=== PATIENT | female | born 1935 | race Caucasian/White ===

== ENCOUNTER 2017-02-09 15:30 | Emergency (ER) | payer OTHER ==
[~2017-02-09] VITALS: Ht 152.4 cm; Wt 46.3 kg
[2017-02-09 15:59] VITALS: BP 168/72
[2017-02-09] MEDS ORDERED: PRED20TA PO (16:01)
[2017-02-09] MEDS ORDERED: ORPH100T PO (16:01)
[2017-02-09] MEDS ORDERED: HYDR-971 PO (16:01)
--- NOTE | 2017-02-09 16:02 | PHYS DOC ---
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 She believes that she overexerted herself somewhat with lifting moving repetitive motions. She states that she's been taking ibuprofen at home which seems to alleviate the pain somewhat but doesn't totally monie the pain. Patient states that she has also some numbness and tingling to the right side of her neck in the same area. Patient denies any previous spinal column fractures or spinal cord injuries. She denies any history of neuromuscular diseases. She denies chest pain, palpitations, exertional dyspnea , orthopnea or PND. Review of Systems Review of Systems Constitutional: Denies fever or chills [] Eyes: Denies change in visual acuity, redness, or eye pain [] HENT: Denies nasal congestion or sore throat [] Respiratory: Denies cough or shortness of breath [] Cardiovascular: No additional information not addressed in HPI [] GI: Denies abdominal pain, nausea, vomiting, bloody stools or diarrhea [] : Denies dysuria or hematuria [] Musculoskeletal: Denies back pain or joint pain [] Integument: Denies rash or skin lesions [] Neurologic: Denies headache, focal weakness or sensory changes [] Endocrine: Denies polyuria or polydipsia [] Physical Exam Physical Exam Constitutional: Well developed, well nourished, no acute distress, non-toxic appearance. [] HENT: Normocephalic, atraumatic, bilateral external ears normal, oropharynx moist, no oral exudates, nose normal. [] Eyes: PERRLA, EOMI, conjunctiva normal, no discharge. [] Neck: His neck is normal in appearance. There is tenderness to palpation to the right paraspinous soft tissues of the superior trapezius up into the insertion at the occiput. No palpable defect, deformity or spasm. There is no midline tenderness. Patient demonstrates full range of motion without any instability or crepitus. Cardiovascular:Heart rate regular rhythm, no murmur [] Lungs & Thorax: Bilateral breath sounds clear to auscultation [] Abdomen: Bowel sounds normal, soft, no tenderness, no masses, no pulsatile masses. [] Skin: Warm, dry, no erythema, no rash. [] Back: No tenderness, no CVA tenderness. [] Extremities: No tenderness, no cyanosis, no clubbing, ROM intact, no edema. [] Neurologic: Alert and oriented X 3, normal motor function, normal sensory function, no focal deficits noted. Bilateral upper extremity strength is equal and symmetric. Psychologic: Affect normal, judgement normal, mood normal. [] EKG EKG [] Radiology/Procedures Radiology/Procedures [] Course & Med Decision Making Course & Med Decision Making Pertinent Labs and Imaging studies reviewed. (See chart for details) [] Dragon Disclaimer Dragon Disclaimer This electronic medical record was generated, in whole or in part, using a voice recognition dictation system. Departure Departure Impression: Primary Impression: Cervical strain, acute Disposition: HOME, SELF-CARE Condition: GOOD Patient Instructions: Soft Tissue Injury of the Neck, [id number] Additional Instructions: 1. Take the medication as prescribed. 2. Review the discharge instructions provided for self-care and reasons to return to the emergency department. 3. Contact your primary care doctor's office Sunday to schedule follow-up appointment. Scripts Prednisone (PREDNISONE) 20 Mg Tablet 2 TAB PO DAILY for 5 Days, #10 TAB Prov: LAURITA CORONEL 02/09/17 Orphenadrine Citrate (ORPHENADRINE CITRATE) 100 Mg Tablet.er 100 MG PO twice a day for 7 Days Prov: LAURITA CORONEL 02/09/17 Hydrocodone/Apap 5-325 (NORCO 5-325 TABLET) 1 Each Tablet 1 TAB PO PRN Q6HRS Y for PAIN for 15 Days, TAB 0 Refills Prov: LAURITA CORONEL 02/09/17 Problem Qualifiers Primary Impression: Cervical strain, acute Encounter type: initial encounter Qualified Codes: S16.1XXA - Strain of muscle, fascia and tendon at neck level, initial encounter LAURITA CORONEL February 09, 2017 16:02
== END 2017-02-09 16:35 | disposition home or self-care (01) ==
LOC: ER 15:30
DX: S16.1XXA Strain of muscle, fascia and tendon at neck level, initial encounter (principal); X50.3XXA Overexertion from repetitive movements, initial encounter; Y93.E2 Activity, laundry; Y99.8 Other external cause status; Y92.89 Other specified places as the place of occurrence of the external cause
CPT/HCPCS: 99283

== ENCOUNTER → 2019-01-02 | Outpatient (CLI) | payer OTHER ==
[2017-10-28 11:05] VITALS: BP 100/64
[~2019-01-02] MED LIST: HYDR-3164 PO; LORA10CA PO; ORPH100T PO; PRED20TA PO
--- NOTE | 2019-01-02 14:31 | KCIC ---
EXAM: Dual energy x-ray absorptiometry (DEXA). HISTORY: Postmenopausal female presents for osteoporosis screening. COMPARISON: None. TECHNIQUE: Dual energy x-ray absorptiometry of the lumbar spine and left hip was performed. Calculation of bone mineral density based on standard deviations above or below the expected young adult normal value (T-score) was completed. FINDINGS: The average bone mineral density in the 1st through 4th lumbar vertebrae is 0.989 g/cmxcm, corresponding with a T-score of -0.5. The average total bone mineral density in the left hip is 0.724 g/cmxcm, corresponding with a T-score of -1.8. IMPRESSION: 1. Osteopenia measured at the left hip. 2. Normal bone mineral density measured at the lumbar spine. Note: Definitions established by the World Health Organization: 1. Normal: T-score is -1.0 or above. 2. Osteopenia: T-score is between -1.0 and -2.5 . 3. Osteoporosis: T-score is -2.5 or below. Electronically signed by: Alice Roberson MD (01/02/2019 2:28 PM) [place] [id number]
--- NOTE | 2019-01-03 12:50 | KCIC ---
Bilateral digital screening mammograms with 3-D tomosynthesis: Reason for examination: Routine screening. Comparison is made to previous studies dated 12/08/2015 and 04/22/2014. Bilateral mammograms in CC and oblique projections were obtained with 2-D imaging and 3-D tomosynthesis imaging on a Siemens Inspiration unit and reviewed on the workstation. Interpretation was made with the benefit of CAD. The skin and nipples show no abnormalities. No abnormal axillary lymph nodes are seen. The breast parenchyma shows scattered fatty and fibroglandular density. (Breast density: Category B.) There are small benign-appearing parenchymal densities seen right breast which are stable. There are no new dominant masses, suspicious calcifications or architectural distortion. Impression: No evidence of malignancy. Recommend routine screening. BI-RAD Category 2: Benign. "Our facility is accredited by the [employer] Mammography Program." This patient's information has been entered into a reminder system for the patient to be notified with the results of her examination and a target date for the next mammogram. Electronically signed by: Fernanda Jhaveri MD (01/03/2019 12:47 PM) [id number]
== END | disposition home or self-care (01) ==
LOC: KCIC DEXA 13:00
PROVIDERS: ATTEND Family Medicine
DX: Z12.31 Encounter for screening mammogram for malignant neoplasm of breast (principal); Z13.820 Encounter for screening for osteoporosis; M85.88 Other specified disorders of bone density and structure, other site
CPT/HCPCS: 77063; 77067; 77080

== ENCOUNTER 2019-12-03 11:56 | Emergency (ER) | payer MEDICARE, OTHER ==
[~2019-12-03] VITALS: Ht 152.4 cm; Wt 48.0 kg
[2019-12-03 12:41] LABS: BILIRUBIN,URINE NEGATIVE (NEG); CLARITY,URINE CLEAR; COLOR,URINE YELLOW; NITRITE,URINE NEGATIVE (NEG); PROTEIN,URINE NEGATIVE (NEG-TRACE); UROBILINOGEN,URINE 0.2 mg/dL (0.2 mg/dL)
[2019-12-03 12:47] LABS: BACTERIA,URINE MANY /HPF (0-FEW); SQUAMOUS EPITHELIAL CELL,UR MANY /LPF
[2019-12-03] MEDS ORDERED: KETOROLAC 30 MG/ML VIAL. IVP ONE (13:00)
[2019-12-03] MEDS ORDERED: KETOROLAC 60 MG/2 ML VIAL. IM ONE (13:30)
--- NOTE | 2019-12-03 14:10 | RAD ---
EXAM: CT Abdomen and Pelvis without IV contrast CLINICAL HISTORY: suprapubic pain, bilateral flank pain, low back pain, dysuria COMPARISON: none TECHNIQUE: Helical CT of the abdomen and pelvis was performed without the administration of IV contrast. Axial, coronal and sagittal reformatted images were generated. ---PQRS compliance statement - One or more of the following individualized dose reduction techniques were utilized for this study: 1. Automated exposure control 2. Adjustment of the mA and/or kV according to patient size 3. Use of iterative reconstruction technique--- FINDINGS: Lack of intravenous contrast limits evaluation of solid organs, vasculature, and lymph nodes. Lower chest: Bronchiectasis medial right lower lobe. Calcified granuloma are also seen. A 1.4 cm right lower lobe lung nodule is seen. Abdomen and pelvis: Liver and biliary system: No focal liver lesion. Calcified granuloma are seen. There has been a cholecystectomy.. No biliary ductal dilatation. Spleen: Unremarkable Pancreas: Unremarkable Adrenal glands: Unremarkable Kidneys: Nonobstructing right interpolar renal calculi are seen. A 4.9 cm left lower pole renal cyst is seen. Smaller bilateral parapelvic renal cysts are seen. No hydronephrosis or hydroureter. Lymph nodes/retroperitoneum: No abdominal or pelvic lymphadenopathy. Vessels: Atherosclerotic calcifications of aorta are seen. Bowel/Peritoneal cavity: Moderate colonic stool content is seen. Colonic diverticulosis without evidence for acute diverticulitis. No abdominal or pelvic ascites. Duodenal diverticulum is seen Abdominal wall: Small fat-containing periumbilical hernia is seen. Bladder: Significant distention of the bladder, may be seen with voluntary or involuntary causes of urinary retention. Bones: Please see dedicated CT lumbar spine report below for full lumbar spine details. SI joint degenerative changes are seen. IMPRESSION: Significant distention of the bladder, may be seen with voluntary or involuntary causes of urinary retention. Colonic diverticulosis without evidence for acute diverticulitis. Nonobstructing interpolar right renal calculi. 1.4 cm right lower lobe lung nodule is seen in the region of bronchiectasis. This can be compared to prior examinations if available otherwise further evaluation with PET/CT scan is recommended. EXAM: CT lumbar spine without IV contrast CLINICAL HISTORY:Back pain, abdominal pain, bilateral flank pain COMPARISON: None available. TECHNIQUE: Helical CT was performed through the lumbar spine. Axial, coronal and sagittal reformatted images were generated. PQRS compliance statement - One or more of the following individualized dose reduction techniques were utilized for this study: 1. Automated exposure control 2. Adjustment of the mA and/or kV according to patient size 3. Use of iterative reconstruction technique FINDINGS: Focal areas of this report, small right rib is seen at T12. 5 nonrib-bearing lumbar-type vertebral bodies. Vertebral body heights are preserved. No acute fracture is seen. Trace anterolisthesis of L4 on L5 (measures 3 mm) is likely degenerative given the facet degenerative changes. Facet degenerative changes are also seen at L5-S1. Mild L4-5 disc height loss. IMPRESSION: 1. Multilevel spondylosis as above 2. Negative acute fracture 3. Trace anterolisthesis of L4 on L5 likely degenerative. Electronically signed by: Lan Solomon MD (12/03/2019 2:07 PM) [id number]
[2019-12-03] MEDS ORDERED: CIPR250T30 PO (14:25)
[2019-12-03] MEDS ORDERED: TRAM-48 PO (14:25)
--- NOTE | 2019-12-03 14:26 | PHYS DOC ---
Past Medical History Past Medical History: Anxiety, Other Additional Past Medical Histor: back pain Past Surgical History: Appendectomy, Cholecystectomy, Hysterectomy Smoking Status: Never Smoker Alcohol Use: Rarely Drug Use: None Adult General Chief Complaint Chief Complaint: BACK PAIN - NO INJURY HPI HPI Patient is a 84 year old with history of anxiety and back pain who presents with complaint of back pain Review of Systems Review of Systems Constitutional: Denies fever or chills [] Eyes: Denies change in visual acuity, redness, or eye pain [] HENT: Denies nasal congestion or sore throat [] Respiratory: Denies cough or shortness of breath [] Cardiovascular: No additional information not addressed in HPI [] GI: Denies abdominal pain, nausea, vomiting, bloody stools or diarrhea [] : Denies dysuria or hematuria [] Musculoskeletal: Denies back pain or joint pain [] Integument: Denies rash or skin lesions [] Neurologic: Denies headache, focal weakness or sensory changes [] Endocrine: Denies polyuria or polydipsia [] All other systems were reviewed and found to be within normal limits, except as documented in this note. Current Medications Current Medications Current Medications Medications (Trade) Dose Ordered Sig/Melissa Start Time Stop Time Status Last Admin Dose Admin Ketorolac Tromethamine (Toradol 30mg Vial) 30 mg 1X ONCE 12/03/19 13:00 12/03/19 13:25 DC Ketorolac Tromethamine (Toradol Im) 60 mg 1X ONCE 12/03/19 13:30 12/03/19 13:31 DC 12/03/19 13:45 60 MG Allergies Allergies Allergies Coded Allergies Type Severity Reaction Last Updated Verified Penicillins Allergy Intermediate Rash 02/09/17 Yes iodine Allergy Intermediate Rash 02/09/17 Yes codeine Adverse Reaction Intermediate Nausea and Vomiting 02/09/17 Yes Physical Exam Physical Exam Constitutional: Well developed, well nourished, no acute distress, non-toxic appearance. [] HENT: Normocephalic, atraumatic, bilateral external ears normal, oropharynx moist, no oral exudates, nose normal. [] Eyes: PERRLA, EOMI, conjunctiva normal, no discharge. [] Neck: Normal range of motion, no tenderness, supple, no stridor. [] Cardiovascular:Heart rate regular rhythm, no murmur [] Lungs & Thorax: Bilateral breath sounds clear to auscultation [] Abdomen: Bowel sounds normal, soft, no tenderness, no masses, no pulsatile masses. [] Skin: Warm, dry, no erythema, no rash. [] Back: No tenderness, no CVA tenderness. [] Extremities: No tenderness, no cyanosis, no clubbing, ROM intact, no edema. [] Neurologic: Alert and oriented X 3, normal motor function, normal sensory function, no focal deficits noted. [] Psychologic: Affect normal, judgement normal, mood normal. [] Current Patient Data Vital Signs Vital Signs Date Time Temp Pulse Resp B/P (MAP) Pulse Ox O2 Delivery O2 Flow Rate FiO2 12/03/19 15:00 60 32 146/70 (95) 97 Room Air 12/03/19 12:15 97.7 97.7 Lab Values Laboratory Tests Test 12/03/19 12:15 Urine Collection Type Unknown Urine Color Yellow Urine Clarity Clear Urine pH 6.0 Urine Specific Barnum 1.010 Urine Protein Negative mg/dL (NEG-TRACE) Urine Glucose (UA) Negative mg/dL (NEG) Urine Ketones (Stick) Negative mg/dL (NEG) Urine Blood Trace (NEG) Urine Nitrite Negative (NEG) Urine Bilirubin Negative (NEG) Urine Urobilinogen Dipstick 0.2 mg/dL (0.2 mg/dL) Urine Leukocyte Esterase Negative (NEG) Urine RBC 1-2 /HPF (0-2) Urine WBC 5-10 /HPF (0-4) Urine Squamous Epithelial Cells Many /LPF Urine Bacteria Many /HPF (0-FEW) EKG EKG [] Radiology/Procedures Radiology/Procedures [facility] [address] [place], [place] [id number] IMAGING REPORT Signed PATIENT: ALYCE CAST ACCOUNT: [id number] : 1935 LOCATION: ER AGE: 84 SEX: F EXAM STATUS: REG ER ORD. PHYSICIAN: YASMEEN SERRANO MD REASON: suprapubic pain PROCEDURE: CT ABDOMEN PELVIS WO CONTRAST EXAM: CT Abdomen and Pelvis without IV contrast CLINICAL HISTORY: suprapubic pain, bilateral flank pain, low back pain, dysuria COMPARISON: none TECHNIQUE: Helical CT of the abdomen and pelvis was performed without the administration of IV contrast. Axial, coronal and sagittal reformatted images were generated. ---PQRS compliance statement - One or more of the following individualized dose reduction techniques were utilized for this study: 1. Automated exposure control 2. Adjustment of the mA and/or kV according to patient size 3. Use of iterative reconstruction technique--- FINDINGS: Lack of intravenous contrast limits evaluation of solid organs, vasculature, and lymph nodes. Lower chest: Bronchiectasis medial right lower lobe. Calcified granuloma are also seen. A 1.4 cm right lower lobe lung nodule is seen. Abdomen and pelvis: Liver and biliary system: No focal liver lesion. Calcified granuloma are seen. There has been a cholecystectomy.. No biliary ductal dilatation. Spleen: Unremarkable Pancreas: Unremarkable Adrenal glands: Unremarkable Kidneys: Nonobstructing right interpolar renal calculi are seen. A 4.9 cm left lower pole renal cyst is seen. Smaller bilateral parapelvic renal cysts are seen. No hydronephrosis or hydroureter. Lymph nodes/retroperitoneum: No abdominal or pelvic lymphadenopathy. Vessels: Atherosclerotic calcifications of aorta are seen. Bowel/Peritoneal cavity: Moderate colonic stool content is seen. Colonic diverticulosis without evidence for acute diverticulitis. No abdominal or pelvic ascites. Duodenal diverticulum is seen Abdominal wall: Small fat-containing periumbilical hernia is seen. Bladder: Significant distention of the bladder, may be seen with voluntary or involuntary causes of urinary retention. Bones: Please see dedicated CT lumbar spine report below for full lumbar spine details. SI joint degenerative changes are seen. IMPRESSION: Significant distention of the bladder, may be seen with voluntary or involuntary causes of urinary retention. Colonic diverticulosis without evidence for acute diverticulitis. Nonobstructing interpolar right renal calculi. 1.4 cm right lower lobe lung nodule is seen in the region of bronchiectasis. This can be compared to prior examinations if available otherwise further evaluation with PET/CT scan is recommended. EXAM: CT lumbar spine without IV contrast CLINICAL HISTORY:Back pain, abdominal pain, bilateral flank pain COMPARISON: None available. TECHNIQUE: Helical CT was performed through the lumbar spine. Axial, coronal and sagittal reformatted images were generated. PQRS compliance statement - One or more of the following individualized dose reduction techniques were utilized for this study: 1. Automated exposure control 2. Adjustment of the mA and/or kV according to patient size 3. Use of iterative reconstruction technique FINDINGS: Focal areas of this report, small right rib is seen at T12. 5 nonrib-bearing lumbar-type vertebral bodies. Vertebral body heights are preserved. No acute fracture is seen. Trace anterolisthesis of L4 on L5 (measures 3 mm) is likely degenerative given the facet degenerative changes. Facet degenerative changes are also seen at L5-S1. Mild L4-5 disc height loss. IMPRESSION: 1. Multilevel spondylosis as above 2. Negative acute fracture 3. Trace anterolisthesis of L4 on L5 likely degenerative. Electronically signed by: Lan Solomon MD (12/03/2019 2:07 PM) [id number] DICTATED and SIGNED BY: LAN SOLOMON MD DATE: 12/03/19 1407 Course & Med Decision Making Course & Med Decision Making Pertinent Labs and Imaging studies reviewed. (See chart for details) Evaluation of patient in ER showed 84-year-old female patient with complaining of lower abdominal and back pain for several days. Patient refuses lab tests. UA showed UTI. CT abdomen and pelvis showed distended bladder and patient had 500 Attending gallbladder. Patient had history of previous bladder suspension surgery and was advised to follow-up with urologist. Dragon Disclaimer Dragon Disclaimer This electronic medical record was generated, in whole or in part, using a voice recognition dictation system. Departure Departure Impression: Primary Impression: Urinary retention Additional Impression: Urinary tract infection Disposition: 01 HOME, SELF-CARE Condition: IMPROVED Referrals: UNKNOWN PCP NAME (PCP) Patient Instructions: Urinary Retention, Acute, Female, Urinary Tract Infection Additional Instructions: Drink plenty of liquids Follow-up with your primary care physician in 3-5 days Return to ER if not getting better Follow-up with [facility] urology team Thank you for visiting [facility]. We appreciate you trusting us with your care. If any additional problems come up don't hesitate to return to visit us. Please follow up with your primary care provider so they can plan additional care if needed and know about the problem that you had. If symptoms worsen come back to the Emergency Department. Any concerning symptoms that start such as chest pain, shortness of air, weakness or numbness on one side of the body, running high fevers or any other concerning symptoms return to the ER. Scripts Tramadol Hcl (ULTRAM) 50 Mg Tablet 50 MG PO Q6HRS PRN for PAIN, #14 TAB 0 Refills Prov: YASMEEN SERRANO MD 12/03/19 Ciprofloxacin Hcl (CIPRO) 250 Mg Tablet 1 TAB PO BID for infection, #14 TAB Prov: YASMEEN SERRANO MD 12/03/19 Problem Qualifiers Additional Impression: Urinary tract infection Urinary tract infection type: site unspecified Hematuria presence: without hematuria Qualified Codes: N39.0 - Urinary tract infection, site not specified YASMEEN SERRANO MD Dec 03, 2019 14:26
[2019-12-03 15:00] VITALS: BP 146/70
== END 2019-12-03 15:14 | disposition home or self-care (01) ==
LOC: ER 11:56
DX: N39.0 Urinary tract infection, site not specified (principal); R33.9 Retention of urine, unspecified; F41.9 Anxiety disorder, unspecified; Z90.49 Acquired absence of other specified parts of digestive tract; Z90.89 Acquired absence of other organs; Z90.710 Acquired absence of both cervix and uterus; Z88.0 Allergy status to penicillin; Z88.5 Allergy status to narcotic agent; Z88.1 Allergy status to other antibiotic agents
CPT/HCPCS: 74176; 81001; 87086; 96372; 99285; J1885

== ENCOUNTER → 2020-04-19 | Outpatient (CLI) | payer MEDICARE ==
[~2020-04-19] MED LIST changes: +CIPR250T30 PO; +CONTRAST GIVEN. MC PRN; +IOHEXOL 300 MG/ML 100ML VIAL. IV ONE; +TRAM-48 PO
--- NOTE | 2020-04-19 09:58 | KCIC ---
CT SOFT TISSUE NECK W/CONTRAST DATE: 04/19/2020 12:00 AM INDICATION: DYSPHAGIA, PAINFUL SWALLOWING, MID STERNAL TECHNIQUE: Axial computed tomography of the neck with intravenous contrast according to the standard neck protocol. 80 cc of Omnipaque 300 was administered intravenously. One or more of the following dose reduction techniques were utilized: Automated exposure control (AEC), Adjustment of mA and/or kV according to patient size, Use of iterative reconstruction technique such as ASiR, CT scan done according to ALARA and image gently/image wisely COMPARISON: None. FINDINGS: Scattered subcentimeter lymph nodes are seen in the neck. None are pathologically enlarged or abnormally enhancing. The parotid and submandibular glands are normal. Bilateral thyroid nodules measuring less than 1.5 cm, not meeting criteria for biopsy. The muscles of the neck are normal. Vessels of the neck demonstrate normal course, caliber, and enhancement. The visualized aerodigestive tract is normal. The visualized posterior fossa and brain is unremarkable. The visualized orbits and paranasal sinuses are normal. Moderate multilevel degenerative disc desiccation. Multilevel spinal canal stenosis secondary to disc protrusions and marginal osteophytes. Multilevel neural foraminal narrowing secondary to uncovertebral and facet arthrosis. The visualized lung apices are clear. IMPRESSION: No neck mass or lymphadenopathy. Electronically signed by: Maldonado Rose MD (04/19/2020 9:55 AM) [id number]
== END ==
LOC: KCIC CT 08:25
PROVIDERS: ATTEND Internal Medicine Gastroenterology
DX: R47.02 Dysphasia (principal); M25.78 Osteophyte, vertebrae; M47.9 Spondylosis, unspecified; E04.1 Nontoxic single thyroid nodule
CPT/HCPCS: 70491; 82565; Q9967

== ENCOUNTER → 2020-04-22 | Outpatient (CLI) | payer MEDICARE ==
[~2020-04-22] MED LIST changes: -CONTRAST GIVEN. MC PRN; -IOHEXOL 300 MG/ML 100ML VIAL. IV ONE
--- NOTE | 2020-04-22 09:11 | KCIC ---
ESOPHAGRAM/BARIUM SWALLOW History: Dysphagia, painful swallowing, recent esophageal stretching Comparison: Neck CT April 19, 2020; esophagram October 28, 2017 Findings: Barium esophagram was performed. With patient in prone oblique position, there was delayed propulsion of the contrast column beyond the proximal to mid esophagus although no stricture in this region, apparently due to decreased effective propulsive motility. Some tertiary contractions were noted of the mid to distal esophagus during exam. However there was normal emptying of the esophagus with patient in upright position. There is small sliding hiatal hernia. There is mild narrowing of the distal esophagus above the hiatal hernia. Esophagus is not significantly dilated. There is opaque granuloma of the medial right lung base. Note is made of multilevel fairly severe cervical degenerative disc disease and mild to moderate spondylosis greatest C4-5 to C6-7. Fluoroscopy time: 1 minute 26 seconds, 20 images Impression: 1. As demonstrated with patient in prone oblique position, there was decreased effective propulsive motility of the proximal to mid esophagus. 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 2. There is small hiatal hernia, mild narrowing of the distal esophagus. 3. There is multilevel cervical degenerative disease and spondylosis greatest C4-5 to C6-7. Electronically signed by: Maldonado Neff MD (04/22/2020 9:08 AM) [id number]
== END | disposition home or self-care (01) ==
LOC: KCIC 07:45
PROVIDERS: ATTEND Internal Medicine Gastroenterology
DX: K44.9 Diaphragmatic hernia without obstruction or gangrene (principal); J84.10 Pulmonary fibrosis, unspecified; M50.321 Other cervical disc degeneration at C4-C5 level; M47.812 Spondylosis without myelopathy or radiculopathy, cervical region; K22.8 Other specified diseases of esophagus; R13.10 Dysphagia, unspecified
CPT/HCPCS: 74220

== ENCOUNTER → 2021-01-10 | Outpatient (CLI) | payer MEDICARE ==
--- NOTE | 2021-01-11 09:34 | KCIC ---
XR CERVICAL SPINE 2-3V Clinical Indication: Reason: BACK PAIN AT MULTIPLE SITES / Spl. Instructions: Acute pain in neck and lumbar for 2 months now. Alternating arm pain. / History: Comparison: CT soft tissue neck April 19, 2020. Findings: There is multilevel uncovertebral and facet joint hypertrophy. The lung apices are clear. Open-mouth view is limited due to bony overlap. No obvious abnormality of the odontoid. There is minimal grade 1 anterolisthesis of C3 on C4. The alignment is otherwise maintained. There is moderate disc space corine rowing and degenerative endplate spurring at C4/C5, C5/C6, and C6/C7. The prevertebral soft tissues a re normal. IMPRESSION: There is moderate degenerative spondylosis most advanced at C4/C5, C5/C6, and C6/C7. Electronically signed by: Efraín Jefferson MD (01/11/2021 9:31 AM) [id number]
--- NOTE | 2021-01-11 11:23 | KCIC ---
XR LUMBAR SPINE 2-3V Clinical Indication: Reason: BACK PAIN AT MULTIPLE SITES / Spl. Instructions: Acute pain in neck and lumbar for 2 months now. Alternating arm pain. / History: Comparison: CT lumbar spine without contrast 12/03/2019. Findings: Large calcified granuloma in the medial right lower lobe. There is degenerative endplate spurring of the thoracolumbar spine. The sacral iliac joints are symmetric. There is stable grade 1 anterolisthes is of L4 on L5. There is minimal grade 1 anterolisthesis of L5 on S1. The alignment is otherwise main tained. There is moderate disc space narrowing of L4/L5. Mild disc space narrowing of L5/S1. Other di sc spaces are relatively maintained. No acute fracture. There are right renal calculi, largest measur es 4 mm. IMPRESSION: 1. 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 Stable alignment. 2. No acute fracture. Electronically signed by: Efraín Jefferson MD (01/11/2021 11:21 AM) [id number]
== END ==
LOC: KCIC 12:20
PROVIDERS: ATTEND Family Medicine
DX: M47.812 Spondylosis without myelopathy or radiculopathy, cervical region (principal); M47.816 Spondylosis without myelopathy or radiculopathy, lumbar region
CPT/HCPCS: 72040; 72100

== ENCOUNTER → 2021-03-03 | Outpatient (CLI) | payer MEDICARE ==
--- NOTE | 2021-03-03 09:33 | KCIC ---
EXAM: DUAL ENERGY X-RAY ABSORPTIOMETRY (DEXA). HISTORY: Postmenopausal screening. FINDINGS: The lowest measured T-score is -1.8 in the left total femur, based on a bone mineral densit y of 0.724 g/cm^2. Refer to the worksheets for full detail. In comparison with the prior study of 01/02/2019, average bone mineral density at the lumbar spine otero s changed +1.3%, while the average density at the hips has changed 0.0%. IMPRESSION: Low bone mass. Bone mineral density yields a T-score between -1.0 and -2.5. Fracture risk is increase d. FRAX was not calculated. METHODOLOGY: Dual energy x-ray absorptiometry was performed to measure bone mineral density. The foll owing analysis is based on the 2019 Official Positions of the International Society for Clinical Dens itometry: Measurements of the hips and the average of L1-L4 are preferred. When the spine and/or hip cannot be feasibly measured or interpreted, or in the setting of hyperparathyroidism, distal radial bone minera l density may be measured. The lumbar spine T-score is based on the average bone mineral density of L1-L4. In the setting of art ifact or anatomic abnormality, some lumbar levels may be excluded, and the remaining levels used for calculation. A single lumbar level is not used for diagnosis, and if only a single level is available for assessment, another anatomic site will be used to assign a diagnosis. The hip T-score is based on the bone mineral density measurement of the femoral neck or total proxima l femur of either side, whichever is lowest. Bilateral mean values are not used for diagnosis. The forearm T-score is derived from 33% of the distal radius of the nondominant forearm. For postmenopausal and perimenopausal women, and men age 50 or older, of all ethnic groups, T-scores are calculated through comparison of the current measurement with the NHANES III database standard fo r females aged 20-29 years. The lowest T-score of the evaluated anatomic sites is used to a ssign a diagnosis based on the World Health Organization densitometric classification. In premenopausal females and males younger than age 50, a Z-score is calculated based on population s pecific reference data for patient sex and self-reported ethnicity. Electronically signed by: Alyssa Rubalcava MD (03/03/2021 9:31 AM) [facility]
--- NOTE | 2021-03-03 12:01 | KCIC ---
Bilateral diagnostic digital mammograms: Reason for examination: Fibrocystic breasts disease. Comparison is made to previous studies dated back to 04/22/2014. Interpretation was made with the benefit of CAD. The skin and nipples show no abnormalities. No abnormal axillary lymph nodes are seen. The breast par enchyma shows scattered fibroglandular density. (Breast density: Category B.) There appears to be a s mall nodule at approximately the 9:00 B position of the right breast. There are no other dominant mas ses, suspicious calcifications or architectural distortions. A few punctate calcifications are presen t. Impression: Small nodular density at the 9:00 B position of the right breast. Ultrasound to follow. BI-RADS Category 0: Incomplete. Needs additional imaging evaluation. Right breast ultrasound: Ultrasound examination of the right breast and axilla was performed. At the 9:00 position 3 cm from the nipple, there is a small 3.6 mm hypoechoic fibrocystic type nodule s seen. There is also some ductal ectasia in the retroareolar position. No abnormal appearing lymph n odes are seen in the axilla. IMPRESSION: Small 3.6 mm fibrocystic lesion at the 9:00 position. No other suspicious abnormality seen in the rig ht breast. Recommend 6 month follow-up with ultrasound. BI-RADS Category 3: Probably Benign. "Our facility is accredited by the [employer] Mammography Program." This patient's information has been entered into a reminder system for the patient to be notified wit h the results of her examination and a target date for the next mammogram. Electronically signed by: Fernanda Jhaveri MD (03/03/2021 11:59 AM) [id number]
== END ==
LOC: KCIC MAMMO 07:57
PROVIDERS: ATTEND Family Medicine
DX: Z78.0 Asymptomatic menopausal state (principal); N63.13 Unspecified lump in the right breast, lower outer quadrant; M89.9 Disorder of bone, unspecified; M85.88 Other specified disorders of bone density and structure, other site; N64.59 Other signs and symptoms in breast
CPT/HCPCS: 76641; 77066; 77080

== ENCOUNTER → 2021-11-08 | Outpatient (CLI) | payer MEDICARE ==
--- NOTE | 2021-11-08 13:20 | KCIC ---
US BREAST RT, Limited/targeted dated 11/08/2021 12:50 PM. History: Reason: 6 MO FU of small nodular density in the 9:00 B position of the right breast. Comparison: Ultrasound from 03/03/2021 and mammogram 03/03/2021.. Findings: In the 9:00 position, 3 cm from the nipple, there is a small cyst with slightly irregular wall This m easures 4 mm in maximum dimension and has not changed m the previous ultrasound. Again seen is a slig htly prominent duct in the right subareolar region. No suspicious mass is identified. There is no rig ht axillary adenopathy. Impression: Small cyst in the 9:00 position of the right breast, 3 cm from the nipple is stable. Retu rn to routine annual mammograms in February 2022 is recommended. ASSESSMENT: BI-RADS 2. Benign findings. Recommendations: Routine screening mammograms. Electronically signed by: Missy Prado MD (11/08/2021 1:18 PM) [id number]
== END ==
LOC: KCIC US 12:46
PROVIDERS: ATTEND Family Medicine
DX: N60.11 Diffuse cystic mastopathy of right breast (principal)
CPT/HCPCS: 76641